=== PATIENT | female | born 1950 | race Caucasian/White ===

== ENCOUNTER 2023-06-11 07:39 | Emergency (ER) | payer OTHER ==
[~2023-06-11] VITALS: Ht 167.6 cm; Wt 72.6 kg
[2023-06-11 07:44] VITALS: BP 126/88; PULSE 88; RESP 18; TEMP 97.7; O2SAT 98
[2023-06-11 09:20] LABS: FLU A ANTIGEN negative (NEGATIVE); FLU B ANTIGEN negative (NEGATIVE)
[2023-06-11] MEDS ORDERED: ALBU0.0912 IH (09:47)
[2023-06-11] MEDS ORDERED: BENZ200C4 PO (09:47)
[2023-06-11] MEDS ORDERED: AZIT250T4 PO (09:47)
[2023-06-11 09:54] VITALS: BP 135/82; PULSE 88; RESP 20; TEMP 98; O2SAT 97
== END 2023-06-11 09:54 | disposition home or self-care (01) ==
LOC: MED 07:39
DX: B34.9 Viral infection, unspecified (principal); J40 Bronchitis, not specified as acute or chronic; Z20.822 Contact with and (suspected) exposure to COVID-19; Z79.899 Other long term (current) drug therapy; Z79.2 Long term (current) use of antibiotics
CPT/HCPCS: 71046; 87081; 99284